=== PATIENT | male | born 1990 | race African-American/Black ===

== ENCOUNTER 2016-06-22 00:41 | Emergency (ER) | payer OTHER ==
[~2016-06-22] VITALS: Ht 170.2 cm; Wt 86.8 kg
[2016-06-22] MEDS ORDERED: AUGMENTIN875 MG PO (04:48)
[2016-06-22 04:54] VITALS: BP 136/90
== END 2016-06-22 04:59 ==
LOC: EME 00:41 → EDBD 00:41 → EME 00:41
DX: S61.216A Laceration without foreign body of right little finger without damage to nail, initial encounter (principal); S51.811A Laceration without foreign body of right forearm, initial encounter; S61.521A Laceration with foreign body of right wrist, initial encounter; S61.411A Laceration without foreign body of right hand, initial encounter; W25.XXXA Contact with sharp glass, initial encounter; Z87.891 Personal history of nicotine dependence
CPT/HCPCS: 73130; 99281; 99284